=== PATIENT | female | born 1950 | race Caucasian/White ===

== ENCOUNTER 2021-05-26 19:23 | Emergency (ER) | payer OTHER, SELFPAY ==
--- NOTE | 2021-05-26 19:28 | CTR_ITS ---
PROCEDURE INFORMATION: Exam: CT Head Without Contrast Exam date and time: 05/26/2021 8:08 PM Age: 70 years old Clinical indication: Injury or trauma; Blunt trauma (contusions or hematomas); Without loss of consciousness; Patient HX: Fall from standing C/O pain back of head and neck TECHNIQUE: Imaging protocol: Computed tomography of the head without contrast. Radiation optimization: All CT scans at this facility use at least one of these dose optimization techniques: automated exposure control; mA and/or kV adjustment per patient size (includes targeted exams where dose is matched to clinical indication); or iterative reconstruction. COMPARISON: No relevant prior studies available. RADIATION DOSE METRICS: Total DLP (mGy-cm): 889.91 FINDINGS: Brain: Normal. No hemorrhage. Unremarkable white matter. No mass effect. Cerebral ventricles: No ventriculomegaly. Paranasal sinuses: Visualized sinuses are unremarkable. No fluid levels. Mastoid air cells: Visualized mastoid air cells are well aerated. Bones/joints: Unremarkable. No acute fracture. Soft tissues: Unremarkable. CT/CT head wo con* [id number] IMPRESSION: No acute intracranial abnormality.
[2021-05-26 19:42] VITALS: BP 184/90; PULSE 85; RESP 18; TEMP 36.6; O2SAT 100; BMI 32.5
--- NOTE | 2021-05-26 19:52 | CTR_ITS ---
PROCEDURE INFORMATION: Exam: CT Cervical Spine Without Contrast Exam date and time: 05/26/2021 8:11 PM Age: 70 years old Clinical indication: Injury or trauma; Blunt trauma; Patient HX: Fall from standing C/O pain back of head and neck TECHNIQUE: Imaging protocol: Computed tomography images of the cervical spine without contrast. Radiation optimization: All CT scans at this facility use at least one of these dose optimization techniques: automated exposure control; mA and/or kV adjustment per patient size (includes targeted exams where dose is matched to clinical indication); or iterative reconstruction. COMPARISON: CT head wo con* [id number] 05/26/2021 8:08 PM RADIATION DOSE METRICS: Total DLP (mGy-cm): 632.88 FINDINGS: Bones/joints: The vertebral body stature is maintained. Mild degenerative anterior subluxation of C4 on C5. No fracture or subluxation. The facets are intact with hypertrophic degenerative changes. Discs/Spinal canal/Neural foramina: Disc space narrowing at C5-C6 and C6-C7 with degenerative endplate spurring. Larynx: Posterior endplate spurring with mild central canal stenosis at C5-C6. Multilevel bilateral bony foraminal stenosis. Lungs: Lung apices are normal. Vasculature: Mild carotid bulb calcifications. Soft tissues: Unremarkable. CT/CT cervical spin wo con* [id number] IMPRESSION: 1. No fracture or acute finding. 2. Multilevel degenerative changes.
--- NOTE | 2021-05-26 19:56 | W.ED.FALL ---
HPI - Fall General: Chief Complaint: Fall Stated Complaint: Injury Hit Head Time Seen by Provider: 05/26/21 19:56 History of Present Illness: Ms. Curiel is a 70-year-old lady who presents to the emergency department due to fall. 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 She endorses head strike and feeling slightly dazed after. She was able to ambulate however currently endorses generalized aching in bilateral shoulders as well as posterior head and neck pain. She does have a headache which is moderate intensity and area of head strike. Otherwise been at her baseline health. No other specific changes in health, exacerbating, or alleviating factors identified. Onset (ago): minute(s) Fall from: standing Fall witnessed: yes, by bystander Place fall occurred: other Loss of consciousness: None Prolonged down time: no Symptoms prior to fall: none Context: tripped/slipped Location of injury: head and neck Severity: moderate Review of Systems General: Reports: 10 or more systems reviewed and unremarkable except in HPI and below PFSH ED PFSH: Medical History (Updated 05/29/21 @ 01:51 by Zach Daley MD) No significant past medical history Surgical History (Updated 05/29/21 @ 01:51 by Zach Daley MD) No significant past surgical history Family History (Updated 05/29/21 @ 01:52 by Zach Daley MD) Denies family history of Clotting disorder Bleeding disorder Physical Exam Const: COMMON NORMALS: alert GENERAL APPEARANCE: cooperative and well developed HENMT: COMMON NORMALS: normocephalic and atraumatic HEAD & SCALP: normocephalic and atraumatic THROAT: posterior oropharynx normal OTHER: Tenderness palpation of posterior scalp. No obvious bony deformity. No julia or rhinorrhea. No malalignment of jaw or abnormal dentition. No septal hematoma. Eye: COMMON NORMALS: conjunctivae normal CONJUNCTIVA: Yes conjunctivae normal SCLERA: sclerae normal Neck/C-Spine: COMMON NORMALS: supple GENERAL: Yes trachea midline Resp: COMMON NORMALS: normal respiratory effort EFFORT & INSPECTION: Yes able to speak in complete sentences Cardio: COMMON NORMALS: regular rate and regular rhythm RATE: regular rate RHYTHM: regular rhythm GI: COMMON NORMALS: Soft to palpation PALPATION: Yes Soft to palpation and No Tenderness to palpation present (GI) PERCUSSION: normal to percussion Extremity: GENERAL: Yes normal exam except as noted and No edema Neuro: COMMON NORMALS: moves all extremities SENSORIUM/ORIENTATION: Yes alert and No Orientation impaired Psych: COMMON NORMALS: mental status grossly normal and Normal thought process present THOUGHT PROCESS: Normal thought process present Course ED course: - Patient was seen and evaluated by me at bedside - Patient placed on cardiac monitors, IV access obtained - Initial evaluation notable for exam as above - Labs personally interpreted by me -Analgesia ordered -No indication for labs based on no prodromal symptoms. - Imaging notable for negative head CT and neck CT for acute traumatic injury. - Upon serial reexamination after treatment the patient was similar - Based on patient history, evaluation, and testing as interpreted the most likely cause of the patient's condition is fall due to slipping with soft tissue/closed head injury. - The results of ED evaluation were discussed with the patient including prescriptions and/or symptomatic cares (if applicable) including appropriate and responsible use, followup plan, and return precautions. The patient verbalized understanding and felt safe for discharge. - Patient discharged in satisfactory condition. Note: Click bubbles or prepopulated sanchez in note writing are used for assistance with data collection and billing and are inherently more limited than narrative and other text portions of this note. Please use narrative for additional clinical history and defer to narrative/free test for any case of contradictory information. If information appears in only free text or click bubble it should be considered present or absent as reported. Please contact note typewriter assembler for clarifications of clinical information or contradictory information. MDM is a brief summary, contradictory or erroneous seeming information should be clarified and full note should be reviewed. Vital Signs: Vital signs: Vital Signs Temperature 98.1 F 05/26/21 20:55 Pulse Rate 75 05/26/21 20:55 Respiratory Rate 15 05/26/21 20:55 Blood Pressure 148/65 05/26/21 20:55 Pulse Oximetry 98 05/26/21 20:55 MDM - Fall Medical Decision Making 70-year-old lady presenting after slipping and falling backwards at [facility] with head strike. Negative head CT and neck CT. Satisfactory for discharge with outpatient symptom cares. Medical Records I reviewed the patient's medical records. Lab Data I reviewed the patient's lab results. Radiology Impressions Head CT 05/26/21 19:28 IMPRESSION: No acute intracranial abnormality. Cervical Spine CT 05/26/21 19:52 IMPRESSION: 1. No fracture or acute finding. 2. Multilevel degenerative changes. Discharge Plan Discharge Patient Disposition: Home Clinical Impression: Fall, Closed head injury Condition: Stable Discharge Orders: Discharge ED (Routine); Ordered 05/26/21 Ordered By: Zach Daley Discharge Diet: Usual diet Discharge Activity: Increase activity as tolerated Patient Instructions: Head Injury (ED) Activity Restrictions/Additional Instructions: Thank you for visiting the emergency department. You were seen and evaluated for fall with head strike. No broken bones or internal injuries were identified. The most likely cause of your symptoms is soft tissue contusion. As discussed, you may use vssz-wuz-[id number] medications for your symptoms however please do not exceed the daily recommended dosage and please keep in mind that many namebrand medications contain the same active ingredients. Please return to the emergency department for anything that you are concerned about and feel needs emergency department evaluation. Coding Level of Care Code ED Easter Bunny for Chance Delgado Exam Comprehensive
[2021-05-26] MEDS: ketorolac 30 mg/mL INJ IM (20:50)
[2021-05-26] MEDS: acetaminophen 500 mg Tablet 1000 MG PO (20:50)
[2021-05-26 20:55] VITALS: BP 148/65; PULSE 75; RESP 15; TEMP 36.7; O2SAT 98
== END 2021-05-26 21:10 | disposition home or self-care (01) ==
PROVIDERS: Emergency Provider Emergency Medicine
DX: S09.90XA Unspecified injury of head, initial encounter (principal); W01.0XXA Fall on same level from slipping, tripping and stumbling without subsequent striking against object, initial encounter
CPT/HCPCS: 70450; 72125; 96372; 99283; J1885

== ENCOUNTER 2022-08-07 08:01 | Observation (INO) | payer MEDICARE, SELFPAY ==
[2022-08-07] VITALS (7 sets, daily range): BP systolic 131–152; BP diastolic 59–93; PULSE 73–84; RESP 14–17; TEMP 36.7–37.1; O2SAT 96–98; BMI 32.5
--- NOTE | 2022-08-07 08:23 | W.ED.ABDPA2 ---
HPI - Abdominal Pain General: Chief Complaint: Abdominal Pain Stated Complaint: acid reflux issues,heart burn Time Seen by Provider: 08/07/22 08:11 Source: patient Mode of arrival: ambulatory History of Present Illness: 71-year-old female presents emergency room complaining of what she describes as her heartburn. She takes Pepcid and omeprazole she is in the last few days its been increasing in frequency and intensity. Its better when she rest or lays down is worse when she is up and about. She has had some chest pressure heaviness that she describes it. No radiation of pain into the neck or arm she has been little short of breath and nauseous with that. She has a history of diabetes mellitus hypertension hyperlipidemia. She relates that she previously had a stress test approximately 3 years ago and was told it was normal and this was done in [place] sleep do not have a copy of it. No other cardiac evaluation or previous angiogram no known coronary artery disease patient does not smoke. MD elicited complaint: other (Epigastric/chest discomfort) Pertinent past history: other (GERD) Onset (ago): day(s) (2) Pain Consistency: intermittent Location: Epigastric Severity: mild Quality: aching Radiation: back and chest Migration to: other (Substernal) Exacerbating factors: other (Exertion) Relieving factors: rest Associated Symptoms: Reports nausea; Denies anorexia, belching, bloating, change in bowel habits, change in stool character, chills, coffee ground emesis, constipation, GI cramping, diarrhea, dyspepsia, dysuria, excessive flatus, fever(s), heartburn, hematochezia, hematuria, hematemesis, fecal incontinence, loose stools, melena, poor appetite, syncope and vomiting Review of Systems Const: Denies: fever(s) or chills Card: Denies: chest pain, palpitations, irregular heart rhythm, edema or syncope Resp: Reports: dyspnea; Denies: productive cough or non-productive cough GI: Reports: abdominal pain and nausea; Denies: vomiting, hematemesis, coffee ground emesis, heartburn, diarrhea, constipation, bloating, GI cramping, belching, excessive flatus, fecal incontinence, change in bowel habits, change in stool character, hematochezia or melena : Denies: dysuria, urinary frequency, urinary urgency or hematuria Musc: Reports: back pain; Denies: neck pain Skin/Breast: Denies: rash or pruritus PFSH ED PFSH: Medical History Diabetes mellitus Hyperlipidemia Hypertension No significant past medical history Surgical History No significant past surgical history Family History Denies family history of Clotting disorder Bleeding disorder Physical Exam Const: GENERAL APPEARANCE: cooperative and comfortable ORIENTATION/CONSCIOUSNESS: Yes awake, Yes oriented to person, Yes oriented to place and Yes oriented to time HENMT: COMMON NORMALS: normocephalic, atraumatic and hearing grossly normal bilaterally HEAD & SCALP: normocephalic and atraumatic Resp: COMMON NORMALS: normal respiratory effort, No retractions, No use of accessory muscles and clear to auscultation bilaterally AUSCULTATION: clear to auscultation bilaterally Cardio: COMMON NORMALS: regular rate, regular rhythm and No murmurs present (Cardio) RATE: regular rate RHYTHM: regular rhythm GI: COMMON NORMALS: Soft to palpation and No hepatosplenomegaly present AUSCULTATION: Yes normoactive bowel sounds PALPATION: Yes Soft to palpation, No Tenderness to palpation present (GI), No Guarding due to palpation present (GI) and Yes No hepatosplenomegaly present Extremity: COMMON NORMALS: normal to inspection, capillary refill normal, no clubbing, cyanosis or edema, no calf tenderness and no pedal edema Neuro: SENSORIUM/ORIENTATION: Yes oriented to person, Yes oriented to place and Yes oriented to time Skin: COMMON NORMALS: no rashes or lesions noted GENERAL SKIN EXAM: no rashes or lesions noted Course Vital Signs: Vital signs: Vital Signs Temperature 98.0 F 08/07/22 08:15 Pulse Rate 79 08/07/22 11:30 Respiratory Rate 17 08/07/22 11:30 Blood Pressure 152/84 08/07/22 11:30 Pulse Oximetry 97 08/07/22 11:30 Oxygen Delivery Me thod Room Air 08/07/22 13:00 MDM - Abdominal Pain Medical Decision Making Patient is having unstable angina. Is been progressive the last couple of days. She had a previous stress test which on the imaging portion was read as abnormal but she never had any follow-up. Given all these things would recommend admission to run out serial enzymes and evaluation by cardiology. Talk to Dr. Montenegro and was consulted Dr. Mahmood from cardiology orders written. Medical Records I reviewed the patient's medical records. Lab Data I reviewed the patient's lab results. 08/07/22 08:53 08/07/22 08:53 Labs/Radiology: Radiology Impressions Chest X-Ray 08/07/22 08:27 IMPRESSION: Unremarkable frontal portable chest x-ray. Laboratory Results WBC 8.3 10^3/uL (4.0-10.0) 08/07/22 08:53 RBC 4.47 10^6/uL (4.1-5.3) 08/07/22 08:53 Hgb 12.5 g/dL (11.5-15.3) 08/07/22 08:53 Hct 38.5 % (37.0-47.0) 08/07/22 08:53 MCV 86.1 fl (81-99) 08/07/22 08:53 MCH 28.0 pg (28.0-34.0) 08/07/22 08:53 MCHC 32.5 g/dL (30.0-36.0) 08/07/22 08:53 RDW 13.5 % (12.1-15.1) 08/07/22 08:53 Plt Count 271 10^3/cmm (130-400) 08/07/22 08:53 MPV 9.4 fL (7.4-10.4) 08/07/22 08:53 Neut % (Auto) 84.7 % 08/07/22 08:53 Lymph % (Auto) 8.2 % 08/07/22 08:53 [place] % (Auto) 5.5 % 08/07/22 08:53 Eos % (Auto) 1.0 % 08/07/22 08:53 Baso % (Auto) 0.1 % 08/07/22 08:53 Neut # (Auto) 7.03 10^3/uL (1.8-7.7) 08/07/22 08:53 Lymph # (Auto) 0.7 10^3/uL (0.8-4.8) L 08/07/22 08:53 [place] # (Auto) 0.5 10^3/uL (0.2-0.9) 08/07/22 08:53 Eos # (Auto) 0.1 10^3/uL (0.0-0.8) 08/07/22 08:53 Baso # (Auto) 0.0 10^3/uL (0.0-0.1) 08/07/22 08:53 Nucleated RBC % (auto) 0 % 08/07/22 08:53 Nucleated RBCs # 0.0 /100WBC 08/07/22 08:53 D-Dimer 0.76 ug/mIFEU (0-0.59) H 08/07/22 08:53 Sodium 135 mmol/L (136-145) L 08/07/22 08:53 Potassium 4.1 mmol/L (3.5-5.1) 08/07/22 08:53 Chloride 98 mmol/L (98-107) 08/07/22 08:53 Carbon Dioxide 25 mmol/L (22-29) 08/07/22 08:53 Anion Gap 16.1 (5-19) 08/07/22 08:53 BUN 21 mg/dL (8-23) 08/07/22 08:53 Creatinine 0.9 mg/dL (0.5-0.9) 08/07/22 08:53 GFR Calculation 62.1 mL/min (90-130) L 08/07/22 08:53 Glucose 134 mg/dL (65-115) H 08/07/22 08:53 Calculated Osmolality 285 mOsm/kg (285-295) 08/07/22 08:53 Calcium 9.4 mg/dL (8.5-10.5) 08/07/22 08:53 Total Bilirubin 0.5 mg/dL (0.15-1.2) 08/07/22 08:53 AST 15 U/L (0-32) 08/07/22 08:53 ALT 11 U/L (0-33) 08/07/22 08:53 Alkaline Phosphatase 51 U/L (35-105) 08/07/22 08:53 Troponin T Baseline 11 ng/L (0-10) H 08/07/22 08:53 Troponin T 120 Minute 6.00 ng/L (0-10) 08/07/22 11:00 Delta Troponin T -5 ABS# (0-10) L 08/07/22 11:00 Total Protein 6.9 g/dL (6.6-8.7) 08/07/22 08:53 Albumin 4.5 g/dL (3.5-5.2) 08/07/22 08:53 Globulin 2.4 g/dL (1.3-4.6) 08/07/22 08:53 Discharge Plan Discharge Patient Disposition: Admitted As Inpatient Clinical Impression: Unstable angina, Diabetes mellitus, Hypertension, Hyperlipidemia Condition: Stable Coding Level of Care Code ED Twill Cutter for Chance Delgado
--- NOTE | 2022-08-07 08:27 | XR_ITS ---
WS: [id number] EXAMINATION: XR chest 1V portable [id number] REASON FOR EXAM: dyspnea/cough COMPARISON: None available. ORDER DATE: 08/07/2022 8:43 AM TECHNIQUE: A single, portable frontal chest x-ray was obtained. X-RAY FINDINGS: The lungs are clear. Pleural spaces are clear. No pleural effusions or pneumothorax. Cardiomediastinal silhouette is unremarkable with minor atherosclerotic calcified plaque.. No evidenc e for pulmonary edema. Soft tissue and osseous structures are unremarkable. No tubes or lines are present. XR/XR chest 1V portable [id number] IMPRESSION: Unremarkable frontal portable chest x-ray.
--- NOTE | 2022-08-07 08:28 | ECG_ITS ---
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 Measurements Intervals [place] Rate: 73 P: 44 [place]: 169 QRS: 0 QRSD: 108 T: 71 QT: 394 QTc: 437 Interpretive Statements SINUS RHYTHM LOW QRS VOLTAGE IN PRECORDIAL LEADS [QRS DEFLECTION < 1.0 mV IN CHEST LEADS] NONSPECIFIC ST & T-WAVE ABNORMALITY No previous ECG available for comparison Electronically Signed On 08-07-2022 16:24:23 CDT by Indu Perez M.D. [id number]
[2022-08-07] MEDS: aspirin 81 mg Chew Tablet 324 MG PO (08:43)
[2022-08-07] MEDS: lidocaine 2% viscous 15 ML, aluminum-mag hydrox-simethicon 30 ML, sucralfate oral liq 1 GM PO (08:45)
[2022-08-07 09:01] LABS: Basophils % 0.1 %; Eosinophils # 0.1 10^3/uL (0.0-0.8); Hematocrit 38.5 % (37.0-47.0); Hemoglobin 12.5 g/dL (11.5-15.3); Lymphocytes # 0.7 10^3/uL (0.8-4.8); Lymphocytes % 8.2 %; Mean Corpuscular HGB Conc 32.5 g/dL (30.0-36.0); Mean Corpuscular Volume 86.1 fl (81-99); Mean Platelet Volume 9.4 fL (7.4-10.4); Monocytes # 0.5 10^3/uL (0.2-0.9); Monocytes % 5.5 %; Neutrophils # 7.03 10^3/uL (1.8-7.7); Neutrophils % 84.7 %; Nucleated Red Blood Cells % 0 %; Platelet Count 271 10^3/cmm (130-400); Red Blood Count 4.47 10^6/uL (4.1-5.3); Red Cell Distribution Width 13.5 % (12.1-15.1); White Blood Count 8.3 10^3/uL (4.0-10.0)
[2022-08-07 09:26] LABS: Alanine Aminotransferase 11 U/L (0-33); Albumin Level 4.5 g/dL (3.5-5.2); Alkaline Phosphatase 51 U/L (35-105); Anion Gap 16.1 (5-19); Aspartate Amino Transferase 15 U/L (0-32); Blood Urea Nitrogen 21 mg/dL (8-23); Calcium 9.4 mg/dL (8.5-10.5); Carbon Dioxide 25 mmol/L (22-29); Chloride 98 mmol/L (98-107); Globulin 2.4 g/dL (1.3-4.6); Glomerular Filtration Rate 62.1 mL/min (90-130); Glucose 134 mg/dL (65-115); Osmolality Calculated 285 mOsm/kg (285-295); Potassium 4.1 mmol/L (3.5-5.1); Sodium 135 mmol/L (136-145); Total Bilirubin 0.5 mg/dL (0.15-1.2); Total Protein 6.9 g/dL (6.6-8.7)
[2022-08-07 09:27] LABS: Troponin(5th) Baseline 11 ng/L (0-10)
[2022-08-07] MEDS: nitroglycerin 1 gm/inch oint Pkt 0.5 INCH TOPICAL (09:57)
--- NOTE | 2022-08-07 10:28 | ECG_ITS ---
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 Measurements Intervals [place] Rate: 70 P: 54 [place]: 175 QRS: 3 QRSD: 107 T: 54 QT: 399 QTc: 432 Interpretive Statements SINUS RHYTHM LOW QRS VOLTAGE IN PRECORDIAL LEADS [QRS DEFLECTION < 1.0 mV IN CHEST LEADS] NONSPECIFIC T-WAVE ABNORMALITY Compared to ECG 08/07/2022 08:32:23 No significant changes Electronically Signed On 08-07-2022 16:29:16 CDT by Indu Perez M.D. [id number]
--- NOTE | 2022-08-07 11:02 | PM.CONSULT ---
Providers/Reason For Consult Consulting Physician/Specialty*: Yo Mahmood MD/ Cardiology Reason for Consult*: Chest pain/unstable angina Requesting Physician: Dr Kennedy Attending Physician: Dr Montenegro Primary Care Provider: Rober Espinoza MD History of Present Illness History of Present Illness Anju Curiel is a 71 year old female with past medical history of diabetes, hypertension, prior reported abnormal stress test however no angiogram was done, is presented with symptoms of substernal pressure that started yesterday in the afternoon. It is on and off and radiates to the back between shoulder blades. She had on and off symptoms since last 1 week. Exertion has worsened it.EKG shows normal sinus rhythm with non-specific ST T wave changes. She is also having dyspnea on exertion. Initial troponin is normal. Review of Systems Const: Denies: fever(s) or chills Card: Denies: chest pain, palpitations, irregular heart rhythm, edema or syncope Resp: Reports: dyspnea; Denies: productive cough or non-productive cough GI: Reports: abdominal pain and nausea; Denies: vomiting, hematemesis, coffee ground emesis, heartburn, diarrhea, constipation, bloating, GI cramping, belching, excessive flatus, fecal incontinence, change in bowel habits, change in stool character, hematochezia or melena : Denies: dysuria, urinary frequency, urinary urgency or hematuria Musc: Reports: back pain; Denies: neck pain Skin/Breast: Denies: rash or pruritus Medications/Allergies Home Medications Medication Instructions Recorded Confirmed Last Taken Type acetaminophen 500 mg tablet 1,000 mg PO BEDTIME 08/07/22 08/07/22 08/06/22 History aspirin 81 mg tablet,delayed 81 mg PO BEDTIME 08/07/22 08/07/22 08/06/22 History release atorvastatin 10 mg tablet 10 mg PO BEDTIME 08/07/22 08/07/22 08/06/22 History cholecalciferol (vitamin D3) 50 50 mcg PO QAM 08/07/22 08/07/22 08/06/22 History mcg (2,000 unit) capsule (Vitamin D3) ibuprofen 200 mg tablet 400 mg PO QAM 08/07/22 08/07/22 08/06/22 History lisinopril 20 1 tab PO QAM 08/07/22 08/07/22 08/06/22 History mg-hydrochlorothiazide 25 mg tablet loratadine 10 mg tablet (Claritin) 10 mg PO QAM 08/07/22 08/07/22 08/06/22 History lysine 500 mg tablet (L-Lysine) 500 mg PO BID 08/07/22 08/07/22 Unknown History magnesium oxide 400 mg PO QAM 08/07/22 08/07/22 08/06/22 History metformin 1,000 mg tablet 1,000 mg PO BID 08/07/22 08/07/22 08/06/22 History metoprolol succinate 100 mg 100 mg PO QAM 08/07/22 08/07/22 08/06/22 History tablet,extended release 24 hr multivitamin 1 tab PO QAM 08/07/22 08/07/22 08/06/22 History omeprazole 20 mg capsule,delayed 20 mg PO DAILY PRN Heartburn 08/07/22 08/07/22 Unknown History release sitagliptin phosphate 100 mg 100 mg PO QAM 08/07/22 08/07/22 08/06/22 History tablet (Januvia) vitamin B complex 1 tab PO QAM 08/07/22 08/07/22 08/06/22 History Allergies Allergy/AdvReac Type Severity Reaction Status Date / Time No Known Allergies Allergy Verified 08/07/22 11:11 PFSH Acute PFSH: Medical History Diabetes mellitus Hyperlipidemia Hypertension No significant past medical history Surgical History No significant past surgical history Family History Denies family history of Clotting disorder Bleeding disorder Vitals/I&O/Wt Last Vital Signs Temp 98.0 F 08/07/22 08:15 Pulse 75 08/07/22 09:57 Resp 14 08/07/22 08:15 BP 134/79 08/07/22 09:57 Pulse Ox 97 08/07/22 08:15 O2 Del Method Room Air 08/07/22 08:15 Weight last 48 hrs Weight 220 lb Physical Exam Narrative: GENERAL: Patient is alert, awake and oriented x3. [] NECK: No jugular vein distension. [] HEENT: No cyanosis. No icterus. No pallor. [] HEART: Regular S1 and S2. No murmur, rub or gallop. [] LUNGS: Clear to auscultate bilaterally. [] CENTRAL NERVOUS SYSTEM: Grossly nonfocal. [] EXTREMITIES: Lower extremities with no edema Data 08/07/22 08:53 08/07/22 08:53 A&P Assessment and plan (1) Unstable angina: (2) Hypertension: (3) Diabetes mellitus: (4) Hyperlipidemia: Plan Patient has significant risk factors for coronary artery disease and has been having typical chest pain symptoms concerning for unstable angina. Pain is ongoing. We will proceed with coronary angiogram with possible percutaneous coronary intervention. N.p.o. Order echocardiogram. Aspirin recommended. If required is PCI, will be loaded with Plavix. Thank you for involving us with care of this patient. We will continue to follow. Please call with questions. Consult Attestations Medical Necessity Statement: Care expected to cross 2 midnights. Coding Level of Care Code Acute Code for [facility] Fwd Diagnoses Unstable angina I20.0 Hypertension I10 Diabetes mellitus E11.9 Hyperlipidemia E78.5
--- NOTE | 2022-08-07 11:22 | XACV_ITS ---
Exam Room: ED.ROOM16 Ht: 175 cm Wt: 100 kg BSA: 2.24 m2 Gender: Female : 1950 Any Known Allergies: No known allergies Exam Priority: Routine Indication(s): - Unstable angina Procedure(s): Procedure Description: Diagnostic procedure Procedure Description: Left Heart Catheterization Procedure Description: Coronary Angiography Diagnostic Cath Status: Urgent Diagnostic Findings * No significant disease noted in the Left Main, Left Anterior Descending, Right, or Circumflex coronary arteries. * Coronary angiography shows right dominance. Conclusions 1. No significant disease noted in the Left Main, Left Anterior Descending, Right, or Circumflex coronary arteries. Recommendations * Aggressive risk factor modification. * Outpatient cardiology follow up in 4 weeks. Interventional RX Recommendation: medical therapy and/or counseling Diagnostic RX Recommendation: medical therapy and/or counseling Anticoagulation: Heparin Pressures Phase:Rest AO : 106 / 68 ( 87 ) @ 1:04:00 PM 136 / 56 ( 90 ) @ 1:09:00 PM 137 / 57 ( 90 ) @ 1:09:00 PM LV : 130 / -22 / 7 @ 1:09:00 PM 126 / -19 / 6 @ 1:09:00 PM Valves Phase:DefaultPhase AV : 0.0 @ 12:35:14 PM AV Mean Gradient: 0.0 @ 12:35:14 PM 0.0 @ 12:35:14 PM Clinical Evaluation EBL: 5mL-10mL Procedural Details Procedure Consent Obtained. Pre-Procedure Time Out. Identified patient by full name and date of as verbalized by the patient/guarantor. Does the consent match the physician's order: Yes. Accurate & Complete Informed Consent: Yes. Inpatient/Outpatient History & Physical on Chart: Yes. If H&P is completed, is and addenduem needed: No. Visualize and Verify Site with Patient/Guarantor: N/A. Relevant Radiology Images available: Yes. The risks, benefits, and alternatives of sedation and/or procedure were discussed by physician. The patient agrees to continue. Procedure started. [facility] Clinical Fraility Score: 3: Managing Well. Manager Payer Indications: Worsening Angina/Unstable Angina. Chest Pain Symptom Assessment: Typical Angina Symptoms. Cardiovascular Instability: No, if yes, Refractory Cardiogenic Shock. Correct patient, site and procedure confirmed by cath team. Current diagnosis: Unstable angina. PERRLA. 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 Lungs clear x 5 lobes. IV Site on Arrival: 20 gauge in the right anticubital. IV Fluids: 0.9% NaCl at KVO. 0 mL infused prior to organic lab worker. Pre Procedural Pulses: bilateral radial was 3+. Oxygen started at 2liters/min via nasal canula. right groin was prepped with chloroprep then draped in the usual sterile fashion. right radial was prepped with chloroprep then draped in the usual sterile fashion. Physician notified. Baseline sample Acquired. HR: 76 BPM. Patient's family unavailable. Equipment: 6F - Radial. Cardiac Cath Pack. ACIST Manifold Kit Model BT 2000. Heparinized Saline (2 units/mL), 1000 mL bag. Physician arrived. Physician scrubbed in. Immediate Pre-Procedure Time Out. Correct Patient: Yes; Correct Procedure: Yes; Correct Site: Yes; Correct Patient Position: Yes; Correct Supplies: Yes; Dried Flammable Prep: Yes, Blood Products Available: N/A;. Lidocaine 1% infiltrated to the right radial. Arterial access obtained. Hand injection of the radial artery performed through the sheath. Unable to use radial access due to difficult anatomy. MD attempting to gain access in the Femoral artery. A TR Band was successful obtaining hemostatsis at the Right Radial artery insertion site. TR band placed. Hemostasis obtained. Lidocaine 1% infiltrated to the right groin. Arterial access obtained with micropuncture set. A 5 botswanan JL4 catheter in over the exchange J wire. Catheter removed over the exchange J wire. A 5 [place] JL4.5 catheter in over the exchange J wire. Multiple views taken of left coronary artery. Catheter removed over the exchange J wire. A 5 bots[place]an JR4 catheter in over the exchange wire. Multiple views taken of right coronary artery. Catheter redirected to the LV. EDP Sample taken: LV 130/-23,7; HR: 76 BPM; SpO2: 96%. Pullback taken: LV 126/-20,6; AO 136/56(90); Mean: 0mmHg, Peak to Peak: 0mmHg, SEP: 7sec/min; HR: 77 BPM; SpO2: 96%. Catheter removed over the exchange J wire. Physician scrubbed out. Post-op diagnosis: Non-obstructive CAD. Complications: none. Estimated blood loss: 5mL-10mL. Responsiveness - Normal response to verbal stimuli; alert and oriented, PERRLA. Airway - Unaffected, no intervention required; spontaneous ventilation. Circulation: W/N/L, pulses unchanged. Nausea/Vomiting: No. Medication's Wasted: Nitro = 49.8 mg. Medication's Wasted: Heparin = 1000 Units. Total IV fluids: 65 mL. Sheath(s) removed and manual pressure held until hemostasis was achieved. Sterile 4x4 and Op-site applied to the puncture site. No oozing or hematoma noted. Post sheath removal instructions were given and the patient verbalized understanding. Post Procedure: bilateral dorsalis pedis pulse Doppled. Post Procedure: bilateral posterior tibial pulse 3+. PERRLA. 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 No VTE prophylaxis required. Procedure completed. Patient transferred by bed to 1st floor. Vital chart was stopped. Access Site Site: Right Radial artery Sheath Size: 6 Fr Hemostasis Method: TR Band Hemostasis Success: Successful Site: Right Femoral artery Sheath Size: 5 Fr Hemostasis Success: Unsuccessful Procedure Medications Start: 11:49 AM Stop: 11:49 AM Medication: Versed Amount: 1 mg Route: I.V. Start: 11:49 AM Stop: 11:49 AM Medication: Fentanyl Amount: 50 mcg Route: I.V. Start: 11:50 AM Stop: 11:50 AM Medication: Nitrogylcerin Amount: 200 mcg Route: I.A. Start: 11:59 AM Stop: 11:59 AM Medication: Versed Amount: 1 mg Route: I.V. Start: 12:12 PM Stop: 12:12 PM Medication: Fentanyl Amount: 50 mcg Route: I.V. I, the attending physician, have reviewed and verified all procedure medications. Yes, all medications given per verbal order History/Risk Factors Hypertension: Yes Dyslipidemia: Yes Peripheral Arterial Disease (PAD): No Myocardial Infarction (MD): No Obesity: Yes Renal Disease: No Prior Interventions PCI: No CABG: No Valve Surgery: No Report Signatures Finalized by Yo Mahmood MD on 08/07/2022 01:30 PM
[2022-08-07 11:27] LABS: Troponin 5 2HR Delta -5 ABS# (0-10)
--- NOTE | 2022-08-07 11:47 | PC.NURSE ---
pt taken to laborer plumbing
--- NOTE | 2022-08-07 13:00 | PC.NURSE ---
from cath lab radiology technician pt is awake, alert,denies any chest pain or discomfort. tr band intact,no hematoma,swelling or bleeding, radial pulse palpable+3. right femoral artery angiosealed,no hematoma, bleeding,DP is palpable +3. call light provided. instructed pt on bedrest for 4 hrs and activity restrictions to her right arm and right leg. oriented pt to staff.
--- NOTE | 2022-08-07 13:05 | SUR.PHASEI ---
TO FLOOR Patient transfered via bed to CSU 112-2. Report off to Jones RN.
--- NOTE | 2022-08-07 13:06 | SUR.PHASEII ---
POST CATH NOTE. Received patient from can labeler. Status post cardiac catheterization via the right radial and right femoral approach. TR band in place. 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 Both access points are free of s/s of hematoma. VSS. Assessments per flowsheet. Call light in reach. Informed to call for needs.
--- NOTE | 2022-08-07 13:13 | P.HP_ITS ---
Providers/Chief Complaint Primary Care Provider: Rober Espinoza MD Chief Complaint: acid reflux issues,heart burn History of Present Illness Anju Curiel is a 71 year old female history of hypertension, dyslipidemia, diabetes, scented today with chief complaint of substernal pressure which has been present since yesterday. No inciting or relieving factor but she describing her symptoms as on and off, her discomfort radiates towards her back, she had an abnormal stress test but she did not pursue any cardiology care afterwards. In the ER she was put on nitro paste for her symptoms which seem to resolve her discomfort. I requested ER physician to get in touch with the network cable installer for angiogram because of her typical unstable anginal symptoms. Patient went to the Drawing Tracer, no signs of coronary artery disease, I will r equest D-dimer, echo and put her on Protonix Review of Systems Const: Denies: fever(s) Eyes: Denies: change in vision ENMT: Denies: throat pain Card: Reports: chest pain Resp: Denies: dyspnea GI: Reports: nausea and bloating : Denies: flank pain Musc: Denies: neck pain Skin/Breast: Denies: rash Neuro: Denies: headache(s) Psych: Reports: anxiety Endo: Denies: polyuria Mario/Lymph: Denies: easy bruising Medications/Allergies Home Medications Medication Instructions Recorded Confirmed Last Taken Type acetaminophen 500 mg tablet 1,000 mg PO BEDTIME 08/07/22 08/07/22 08/06/22 History aspirin 81 mg tablet,delayed 81 mg PO BEDTIME 08/07/22 08/07/22 08/06/22 History release atorvastatin 10 mg tablet 10 mg PO BEDTIME 08/07/22 08/07/22 08/06/22 History cholecalciferol (vitamin D3) 50 50 mcg PO QAM 08/07/22 08/07/22 08/06/22 History mcg (2,000 unit) capsule (Vitamin D3) ibuprofen 200 mg tablet 400 mg PO QAM 08/07/22 08/07/22 08/06/22 History lisinopril 20 1 tab PO QAM 08/07/22 08/07/22 08/06/22 History mg-hydrochlorothiazide 25 mg tablet loratadine 10 mg tablet (Claritin) 10 mg PO QAM 08/07/22 08/07/22 08/06/22 History lysine 500 mg tablet (L-Lysine) 500 mg PO BID 08/07/22 08/07/22 Unknown History magnesium oxide 400 mg PO QAM 08/07/22 08/07/22 08/06/22 History metformin 1,000 mg tablet 1,000 mg PO BID 08/07/22 08/07/22 08/06/22 History metoprolol succinate 100 mg 100 mg PO QAM 08/07/22 08/07/22 08/06/22 History tablet,extended release 24 hr multivitamin 1 tab PO QAM 08/07/22 08/07/22 08/06/22 History omeprazole 20 mg capsule,delayed 20 mg PO DAILY PRN Heartburn 08/07/22 08/07/22 Unknown History release sitagliptin phosphate 100 mg 100 mg PO QAM 08/07/22 08/07/22 08/06/22 History tablet (Januvia) vitamin B complex 1 tab PO QAM 08/07/22 08/07/22 08/06/22 History Allergies Allergy/AdvReac Type Severity Reaction Status Date / Time No Known Allergies Allergy Verified 08/07/22 11:11 PFSH Acute PFSH: Medical History Diabetes mellitus Hyperlipidemia Hypertension No significant past medical history Surgical History No significant past surgical history Family History Denies family history of Clotting disorder Bleeding disorder Vitals/I&O/Wt Last Vital Signs Temp 98.0 F 08/07/22 08:15 Pulse 79 08/07/22 11:30 Resp 17 08/07/22 11:30 BP 152/84 08/07/22 11:30 Pulse Ox 97 08/07/22 11:30 O2 Del Method Room Air 08/07/22 11:30 Weight last 48 hrs Weight 99.79 kg Physical Exam Narrative: Patient is awake and alert No active chest pain No shortness of breath Hemodynamic stable Currently on room air Blood pressure 152/84 minimal pain Normal sinus rhythm Abdomen soft Nonfocal neuro exam Awake and alert Appears stated age Data 08/08/22 03:15 08/08/22 03:15 A&P Assessment and plan (1) Unstable angina: (2) Diabetes mellitus: (3) Hypertension: (4) Hyperlipidemia: (5) GERD (gastroesophageal reflux disease): Plan Unstable angina Normal coronary arteries :Patient went to the Drawing Tracer from the ER We will request D-dimer to rule out PE Start patient on Protonix Cardiac consistent carb diet Check hemoglobin A1c level and lipid panel Calcium channel shreyas shreyas might benefit if there is any concern for coronary spasm Anticipating discharge by tomorrow Hypertension: Continue lisinopril and hydrochlorothiazide at this point Continue atorvastatin Attestations Medical Necessity Statement*: Anticipating discharge by tomorrow Diagnoses Unstable angina I20.0 Diabetes mellitus E11.9 Hypertension I10 Hyperlipidemia E78.5 GERD (gastroesophageal reflux disease) K21.9
--- NOTE | 2022-08-07 13:31 | USCV_ITS ---
Anju Curiel Age: 71 Gender: F : 1950 Exam Date: 08/07/2022 14:28 Ordering Phys: Marisela Montenegro MD Technologist: Shady Montalvo Exam Location: [facility] [place] Indication: post cath BP: 143 / 93 HR: 76 Rhythm: Sinus Technical Quality: Adequate MEASUREMENTS (Male / Female) Normal Values 2D ECHO LV Diastolic Diameter PLAX 4.4 cm 4.2 - 5.9 / 3.9 - 5.3 cm LV Systolic Diameter PLAX 2.7 cm IVS Diastolic Thickness 1.1 cm 0.6 - 1.0 / 0.6 - 0.9 cm IVS Systolic Thickness 1.2 cm LVPW Diastolic Thickness 1.1 cm 0.6 - 1.0 / 0.6 - 0.9 cm LVPW Systolic Thickness 1.5 cm LVOT Diameter 2.1 cm LV Ejection Fraction 2D Teich 68.3 % LV Ejection Fraction MOD 2C 66.6 % LV Ejection Fraction 2C AL 66.8 % LA Diameter 3.2 cm IVC Diameter 1.3 cm M-MODE Aortic Annulus Diameter 3.4 cm LA Ao Ratio MM 0.9 MV E Point Septal Separation 0.9 cm DOPPLER AV Peak Velocity 129.0 cm/s LVOT Peak Velocity 80.0 cm/s AV Area Cont Eq vti 2.1 cm squared AV Area Cont Eq pk 2.1 cm squared MV Area PHT 5.0 cm squared Mitral E to A Ratio 0.6 MV E' Velocity 31.0 cm/s Mitral E to MV E' Ratio 6.7 Mitral E to LV E' Lateral Ratio 6.3 Mitral E to LV E' Septal Ratio 7.2 TR Peak Velocity 157.7 cm/s TR Peak Gradient 9.9 mmHg TV Peak E Velocity 78.0 cm/s Right Atrial Pressure 3.0 mmHg Pulmonary Artery Systolic Pressu 12.9 mmHg RV Acceleration Time 0.1 s FINDINGS Left Ventricle Left ventricle is normal in size. LV systolic function is normal with EF of 55 to 60%. No regional wall motion abnormalities are seen. Grade 1 diastolic dysfunction. Right Ventricle Normal in size and function Right Atrium Normal in size Left Atrium Normal-sized Mitral Valve Structurally normal mitral valve. Trace mitral regurgitation. Aortic Valve Structurally normal aortic valve. No significant stenosis or regurgitation. Tricuspid Valve Mild tricuspid regurgitation. Insufficient TR jet to evaluate RVSP. Pulmonic Valve Not well visualized. Trace pulmonic regurgitation. Pericardium Normal Aorta Normal in size IVC Not well visualized CONCLUSIONS LV systolic function is normal with EF 55 to 60%. Grade 1 diastolic dysfunction. Trace mitral regurgitation Mild tricuspid regurgitation Trace pulmonic regurgitation No comparison studies are available Yo Mahmood MD (Electronically Signed) Final Date: 07 August 2022 18:08 S
[2022-08-07 13:49] LABS: D Dimer 0.76 ug/mIFEU (0-0.59)
--- NOTE | 2022-08-07 14:28 | ECG_ITS ---
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 Measurements Intervals [place] Rate: 76 P: 40 CA: 167 QRS: -5 QRSD: 109 T: 30 QT: 379 QTc: 428 Interpretive Statements SINUS RHYTHM LEFT VENTRICULAR HYPERTROPHY AND ST-T CHANGE [VOLTAGE CRITERIA PLUS ST/T ABNORMALITY] Compared to ECG 08/07/2022 10:32:16 Left ventricular hypertrophy now present ST (T wave) deviation now present T-wave abnormality no longer present Electronically Signed On 08-08-2022 0:34:41 CDT by Indu Perez M.D. [email or web address]
[2022-08-07 15:07] LABS: Thyroid Stimulating Hormone 1.36 uIU/mL (0.27-4.20)
--- NOTE | 2022-08-07 16:32 | PC.NURSE ---
this director underwriter sales received orders from charge nurse to hold Lovenox d/t patient being a post-procedure patient. MD nguyen.
[2022-08-07 16:44] LABS: Glucose Point of Care 112 mg/dL (70-110)
[2022-08-07 16:50] LABS: Estmated Average Glucose 154
[2022-08-07] MEDS: sucralfate 1 gm Tablet PO ×2 (17:49→20:52)
[2022-08-07 20:45] LABS: Troponin 5 6HR 16.19 ng/L (0-10)
[2022-08-07 20:47] LABS: Troponin 5 6HR Delta 5.19 ng/L (0-12)
[2022-08-07] MEDS: atorvastatin 40 mg Tablet 10 MG PO (20:52)
[2022-08-07] MEDS: acetaminophen 500 mg Tablet 1000 MG PO (20:53)
[2022-08-07] MEDS: aspirin 81 mg EC Tablet PO (20:53)
[2022-08-07 20:54] LABS: Glucose Point of Care 150 mg/dL (70-110)
[2022-08-08] VITALS (7 sets, daily range): BP systolic 115–127; BP diastolic 59–64; PULSE 70–78; RESP 12–20; TEMP 36.8–37; O2SAT 95–98
[2022-08-08 04:00] LABS: Basophils % 0.2 %; Eosinophils # 0.2 10^3/uL (0.0-0.8); Eosinophils % 2.6 %; Hematocrit 33.1 % (37.0-47.0); Hemoglobin 10.6 g/dL (11.5-15.3); Lymphocytes # 1.2 10^3/uL (0.8-4.8); Mean Corpuscular Hemoglobin 27.6 pg (28.0-34.0); Mean Corpuscular Volume 86.2 fl (81-99); Mean Platelet Volume 9.8 fL (7.4-10.4); Monocytes # 0.6 10^3/uL (0.2-0.9); Monocytes % 8.6 %; Neutrophils # 4.49 10^3/uL (1.8-7.7); Neutrophils % 69.3 %; Nucleated Red Blood Cells % 0 %; Platelet Count 238 10^3/cmm (130-400); Red Blood Count 3.84 10^6/uL (4.1-5.3); Red Cell Distribution Width 13.5 % (12.1-15.1); White Blood Count 6.5 10^3/uL (4.0-10.0)
[2022-08-08 04:25] LABS: Anion Gap 12.9 (5-19); Blood Urea Nitrogen 16 mg/dL (8-23); Calcium 8.8 mg/dL (8.5-10.5); Carbon Dioxide 26 mmol/L (22-29); Chloride 99 mmol/L (98-107); Glomerular Filtration Rate 71.1 mL/min (90-130); Glucose 117 mg/dL (65-115); Magnesium 1.8 mg/dL (1.7-2.3); Osmolality Calculated 280 mOsm/kg (285-295); Potassium 3.9 mmol/L (3.5-5.1); Sodium 134 mmol/L (136-145)
[2022-08-08] MEDS: metoprolol succinate ER (24 HR) 100 mg Tablet PO (06:30)
[2022-08-08] MEDS: lisinopril 20 mg Tablet PO (06:30)
[2022-08-08] MEDS: hydroCHLOROthiazide 25 mg Tablet PO (06:30)
[2022-08-08] MEDS: sucralfate 1 gm Tablet PO (06:30)
[2022-08-08 06:36] LABS: Glucose Point of Care 121 mg/dL (70-110)
--- NOTE | 2022-08-08 08:07 | P.PN_ITS ---
Subjective Subjective: Patient is doing well. no chest pain. Vitals/I&O/Wt Last Vital Signs Temp 98.3 F 08/08/22 00:00 Pulse 70 08/08/22 08:00 Resp 16 08/08/22 08:00 BP 115/64 08/08/22 07:58 Pulse Ox 98 08/08/22 08:00 O2 Del Method Room Air 08/08/22 08:00 08/07/22 08/08/22 08/08/22 22:59 06:59 14:59 Intake Total 600 / 600 120 / 720 Output Total 300 / 300 Balance 300 / 300 120 / 420 Weight last 48 hrs Weight 220 lb Physical Exam Narrative: GENERAL: Patient is alert, awake and oriented x3. [] NECK: No jugular vein distension. [] HEENT: No cyanosis. No icterus. No pallor. [] HEART: Regular S1 and S2. No murmur, rub or gallop. [] LUNGS: Clear to auscultate bilaterally. [] CENTRAL NERVOUS SYSTEM: Grossly nonfocal. [] EXTREMITIES: Lower extremities with no edema Data 08/08/22 03:15 08/08/22 03:15 A&P Assessment and plan (1) Unstable angina: (2) Hypertension: (3) Diabetes mellitus: (4) Hyperlipidemia: Plan Coronary angiogram did not reveal significant CAD. No access site complications. Aggressive risk factor modification Thank you for involving us with care of this patient. Please call with q uestions. Attestations Medical Necessity Statement*: Care expected to cross 2 midnights. Coding Level of Care Code Acute Code for [facility] Diagnoses Unstable angina I20.0 Hypertension I10 Diabetes mellitus E11.9 Hyperlipidemia E78.5
[2022-08-08 11:26] LABS: Glucose Point of Care 179 mg/dL (70-110)
[2022-08-08] MEDS: insulin lispro 100 unit/1 mL SUBCUT (11:49)
--- NOTE | 2022-08-08 12:09 | P.DS_ITS ---
Discharge Providers Date of Admission: 08/07/22 13:15 Date of Discharge: August 08, 2022 Attending Provider at Admission: Yo Mahmood M.D Attending Provider at Discharge: Yo Mahmood M.D Primary Care Provider: Rober Espinoza MD Diagnoses at Discharge Discharge Diagnosis (1) Unstable angina: Status: Acute (2) Diabetes mellitus: Status: Acute (3) Hypertension: Status: Acute (4) Hyperlipidemia: Status: Acute (5) GERD (gastroesophageal reflux disease): Status: Acute Reason for Visit Reason for Visit: acid reflux issues,heart burn Hospital Course Hospital Course 71 female who presented to hospital with typical anginal symptoms, cardiology was consulted, patient went to the Right Of Way Supervisor right away, troponins flat, EKG showed sinus rhythm, normal coronary vessels no signs of obstruction, her symptoms are most likely related to GI she is endorsing improvement with use of Protonix 40 mg twice a day along sucralfate. I have counseled patient to follow-up with PCP to see if she would need EGD down the road if symptoms do not improve within next 3 to 4 weeks, she follows up with cardiology at [place]. 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 echo complete* [id number] Routine Ultrasound 08/07/22 13:31 Completed Radiology Impressions Chest X-Ray 08/07/22 08:27 IMPRESSION: Unremarkable frontal portable chest x-ray. Laboratory Results WBC 6.5 10^3/uL (4.0-10.0) 08/08/22 03:15 RBC 3.84 10^6/uL (4.1-5.3) L 08/08/22 03:15 Hgb 10.6 g/dL (11.5-15.3) L 08/08/22 03:15 Hct 33.1 % (37.0-47.0) L 08/08/22 03:15 MCV 86.2 fl (81-99) 08/08/22 03:15 MCH 27.6 pg (28.0-34.0) L 08/08/22 03:15 MCHC 32.0 g/dL (30.0-36.0) 08/08/22 03:15 RDW 13.5 % (12.1-15.1) 08/08/22 03:15 Plt Count 238 10^3/cmm (130-400) 08/08/22 03:15 MPV 9.8 fL (7.4-10.4) 08/08/22 03:15 Neut % (Auto) 69.3 % 08/08/22 03:15 Lymph % (Auto) 19.0 % 08/08/22 03:15 Smith % (Auto) 8.6 % 08/08/22 03:15 Eos % (Auto) 2.6 % 08/08/22 03:15 Baso % (Auto) 0.2 % 08/08/22 03:15 Neut # (Auto) 4.49 10^3/uL (1.8-7.7) 08/08/22 03:15 Lymph # (Auto) 1.2 10^3/uL (0.8-4.8) 08/08/22 03:15 Smith # (Auto) 0.6 10^3/uL (0.2-0.9) 08/08/22 03:15 Eos # (Auto) 0.2 10^3/uL (0.0-0.8) 08/08/22 03:15 Baso # (Auto) 0.0 10^3/uL (0.0-0.1) 08/08/22 03:15 Nucleated RBC % (auto) 0 % 08/08/22 03:15 Nucleated RBCs # 0.0 /100WBC 08/08/22 03:15 D-Dimer 0.76 ug/mIFEU (0-0.59) H 08/07/22 08:53 Sodium 134 mmol/L (136-145) L 08/08/22 03:15 Potassium 3.9 mmol/L (3.5-5.1) 08/08/22 03:15 Chloride 99 mmol/L (98-107) 08/08/22 03:15 Carbon Dioxide 26 mmol/L (22-29) 08/08/22 03:15 Anion Gap 12.9 (5-19) 08/08/22 03:15 BUN 16 mg/dL (8-23) 08/08/22 03:15 Creatinine 0.8 mg/dL (0.5-0.9) 08/08/22 03:15 GFR Calculation 71.1 mL/min (90-130) L 08/08/22 03:15 Glucose 117 mg/dL (65-115) H 08/08/22 03:15 POC Glucose 179 mg/dL (70-110) H 08/08/22 11:01 Estimat Average Glucose 154 08/07/22 08:53 Hemoglobin A1c 7.0 % (4.0-6.0) H 08/07/22 08:53 Calculated Osmolality 280 mOsm/kg (285-295) L 08/08/22 03:15 Calcium 8.8 mg/dL (8.5-10.5) 08/08/22 03:15 Magnesium 1.8 mg/dL (1.7-2.3) 08/08/22 03:15 Total Bilirubin 0.5 mg/dL (0.15-1.2) 08/07/22 08:53 AST 15 U/L (0-32) 08/07/22 08:53 ALT 11 U/L (0-33) 08/07/22 08:53 Alkaline Phosphatase 51 U/L (35-105) 08/07/22 08:53 Troponin T Baseline 11 ng/L (0-10) H 08/07/22 08:53 Troponin T 120 Minute 6.00 ng/L (0-10) 08/07/22 11:00 Delta Troponin T -5 ABS# (0-10) L 08/07/22 11:00 Troponin T Hi Sens 6Hr 16.19 ng/L (0-10) H 08/07/22 20:18 Troponin T Hi Sens 6Hr Delta 5.19 ng/L (0-12) 08/07/22 20:18 Total Protein 6.9 g/dL (6.6-8.7) 08/07/22 08:53 Albumin 4.5 g/dL (3.5-5.2) 08/07/22 08:53 Globulin 2.4 g/dL (1.3-4.6) 08/07/22 08:53 TSH 1.36 uIU/mL (0.27-4.20) 08/07/22 08:53 Vitals Last Vital Signs Temp 98.6 F 08/08/22 11:53 Pulse 76 08/08/22 11:53 Resp 20 H 08/08/22 11:53 BP 127/62 08/08/22 11:53 Pulse Ox 95 08/08/22 11:53 O2 Del Method Room Air 08/08/22 11:53 Discharge Plan Discharge Patient Disposition: Home Condition: Stable Prescriptions: New sucralfate 1 gram Tablet 1 g PO AC&BEDTIME Qty: 120 0RF Continued multivitamin Tablet 1 tab PO QAM atorvastatin 10 mg Tablet 10 mg PO BEDTIME metoprolol succinate 100 mg tablet extended release 24 hr 100 mg PO QAM Aspir-81 81 mg Tablet,Delayed Release (Dr/Ec) 81 mg PO BEDTIME Tylenol Ex Str Rapid Release 500 mg Tablet 1,000 mg PO BEDTIME metformin 1,000 mg tablet 1,000 mg PO BID lisinopril-hydrochlorothiazide 20-25 mg tablet 1 tab PO QAM Super B Complex Tablet 1 tab PO QAM L-Lysine 500 mg Tablet 500 mg PO BID Claritin 10 mg Tablet 10 mg PO QAM Januvia 100 mg tablet 100 mg PO QAM Vitamin D3 50 mcg (2,000 unit) Capsule 50 mcg PO QAM magnesium oxide 400 mg magnesium Tablet 400 mg PO QAM Changed omeprazole 20 mg Capsule,Delayed Release(Dr/Ec) 20 mg PO BIDWMEAL PRN (Reason: Heartburn) Qty: 120 0RF Discontinued ibuprofen 200 mg Tablet 400 mg PO QAM Discharge Orders: Discharge Order (Routine); Ordered 08/08/22 Ordered By: Marisela Montenegro Referrals: Rober Espinoza MD [Primary Care Provider] - Patient Instructions: Opioid Safety Discharge Attestations Time Spent in Discharge Care*: greater than 30 min Quality Metrics Clinical Quality Measures [ No reported AMI, CVA or VTE this stay] Coding Level of Care Code Acute Code for [facility] Diagnoses Unstable angina I20.0 Diabetes mellitus E11.9 Hypertension I10 Hyperlipidemia E78.5 GERD (gastroesophageal reflux disease) K21.9
== END 2022-08-08 12:51 | disposition home or self-care (01) ==
LOC: ER 08:25 → CCL 11:50 → CSU 16:08
PROVIDERS: Internal Medicine; Admitting Provider Internal Medicine; Emergency Provider Family Medicine; PCP Family Medicine; Visit Provider Internal Medicine
DX: I20.0 Unstable angina (principal); Z79.82 Long term (current) use of aspirin; Z79.84 Long term (current) use of oral hypoglycemic drugs; E11.9 Type 2 diabetes mellitus without complications; I10 Essential (primary) hypertension; E78.5 Hyperlipidemia, unspecified; K21.9 Gastro-esophageal reflux disease without esophagitis; R94.31 Abnormal electrocardiogram [ECG] [EKG]; E66.9 Obesity, unspecified; Z68.32 Body mass index [BMI] 32.0-32.9, adult
CPT/HCPCS: 36415; 36416; 71045; 80048; 80053; 82962; 83036; 83735; 84443; 84484; 85025; 85378; 93005; 93306; 93458; 96361; 96365; 96372; 96376; 99152; 99153; 99285; C1769; C1887; C1894; G0378; J1644; J1815; J2250; J3010; J3490; J7030; Q9967

== ENCOUNTER → 2022-08-24 11:10 | Outpatient (BNVA) | payer MEDICARE, SELFPAY | PROVIDERS: PCP Family Medicine; Visit Provider Nurse Practitioner Family | DX: I10 Essential (primary) hypertension (principal) | CPT/HCPCS: 80048; 99214 ==